=== PATIENT | female | born 1970 | race Caucasian/White ===

== ENCOUNTER → 2016-06-29 | Outpatient (CLI) | payer OTHER | LOC: WI 08:15 | PROVIDERS: ATTEND Family Medicine | DX: Z12.31 Encounter for screening mammogram for malignant neoplasm of breast (principal); R92.8 Other abnormal and inconclusive findings on diagnostic imaging of breast | CPT/HCPCS: 77067; G0202 ==

== ENCOUNTER 2017-01-21 10:49 | Emergency (ER) | payer OTHER ==
[2017-01-21] MEDS ORDERED: NORMAL SALINE 1000 ML 1,000 ML IV ONE (11:21)
[2017-01-21] MEDS ORDERED: PIPERACILLIN/TAZOBACTAM 4.5 GM VIAL IV ONE (11:21)
--- NOTE | 2017-01-21 11:24 | ER Document Report ---
ED Medical Screen (RME) - General Chief Complaint: Productive Cough Stated Complaint: ABNORMAL LABS Time Seen by Provider: 01/21/17 11:21 Notes: Patient states that she has recently been on Ceftin for sinusitis. She began to have worsening cough and trouble breathing. She went to her primary care physician yesterday and x-ray showed extensive pneumonia. She was then referred to [facility]. She states that [facility] they were never able to obtain an emergency department bed. She did not receive any fluids or antibiotics. Therefore they decided to come here for admission. She states that they were referred for admission at [facility]. Patient denies any significant chronic medical conditions. TRAVEL OUTSIDE OF THE [place] IN LAST 30 DAYS: No - Related Data Allergies/Adverse Reactions: No Known Allergies Allergy (Unverified 01/21/17 11:08) Past Medical History Renal/ Medical History: Denies: Hx Peritoneal Dialysis Physical Exam - Vital signs Vitals: Temp Pulse Resp BP Pulse Ox 99.6 F 99 20 147/88 H 98 01/21/17 11:04 01/21/17 11:04 01/21/17 11:04 01/21/17 11:04 01/21/17 11:04 Course - Vital Signs Vital signs: Temp Pulse Resp BP Pulse Ox 99.6 F 99 20 147/88 H 98 01/21/17 11:04 01/21/17 11:04 01/21/17 11:04 01/21/17 11:04 01/21/17 11:04
[2017-01-21 12:00] LABS: ABSOLUTE EOSINOPHILS # (AUTO) 0.1 10^3/uL (0.0-0.6); ABSOLUTE LYMPHOCYTES (AUTO) 1.6 10^3/uL (0.5-4.7); BASOPHILS % (AUTO) 0.3 % (0-2); EOSINOPHILS % (AUTO) 0.9 % (0-6); HEMATOCRIT 38.6 % (36.0-47.0); HEMOGLOBIN 13.5 g/dL (12.0-15.5); HGB HCT DIFFERENCE 1.9; LYMPHOCYTES % (AUTO) 9.3 % (13-45); MEAN CORPUSCULAR HEMOGLOBIN 31.6 pg (27.0-33.4); MEAN CORPUSCULAR VOLUME 91 fl (80-97); MONOCYTES % (AUTO) 6.2 % (3-13); RED BLOOD COUNT 4.27 10^6/uL (3.72-5.28); RED CELL DISTRIBUTION WIDTH 12.5 % (11.5-14.0); SEGMENTED NEUTROPHILS % (AUTO) 83.3 % (42-78); WHITE BLOOD COUNT 16.8 10^3/uL (4.0-10.5)
[2017-01-21 12:03] LABS: VENOUS BLOOD BASE EXCESS 4.9 mmol/L; VENOUS BLOOD HCO3 30.1 mmol/L (20-32); VENOUS BLOOD PCO2 46.2 mmHg (35-63); VENOUS BLOOD PH 7.43 (7.30-7.42)
[2017-01-21 12:26] LABS: ALANINE AMINOTRANSFERASE 118 U/L (9-52); ALBUMIN 4.5 g/dL (3.5-5.0); ALKALINE PHOSPHATASE 335 U/L (38-126); ANION GAP 15 (5-19); ASPARTATE AMINO TRANSFERASE 97 U/L (14-36); BILIRUBIN,DIRECT 0.5 mg/dL (0.0-0.4); BILIRUBIN,TOTAL 1.1 mg/dL (0.2-1.3); BLOOD UREA NITROGEN 11 mg/dL (7-20); CALCIUM 10.1 mg/dL (8.4-10.2); CARBON DIOXIDE 30 mmol/L (22-30); CHLORIDE 97 mmol/L (98-107); CREATININE RESULT 0.67 mg/dL (0.52-1.25); GLUCOSE 101 mg/dL (75-110); POTASSIUM 3.8 mmol/L (3.6-5.0)
[2017-01-21 12:52] LABS: APPEARANCE,URINE SLIGHTLY-CLOUDY; BILIRUBIN,URINE NEGATIVE (NEGATIVE); GLUCOSE, URINE NEGATIVE (NEGATIVE); KETONES,URINE 20 mg/dL (NEGATIVE); LEUKOCYTE ESTERASE,URINE NEGATIVE (NEGATIVE); NITRITE,URINE NEGATIVE (NEGATIVE); PROTEIN,URINE NEGATIVE (NEGATIVE); URINE SPECIFIC GRAVITY 1.008
--- NOTE | 2017-01-21 12:59 | ER Document Report ---
HPI - HPI Pain Level: 3 Notes: Patient is a 47-year-old female who presents to the ED with a dry semi- productive cough, nasal congestion/discharge, shortness of breath, fatigue, intermittent fevers, decreased appetite 2 weeks. Patient states that she was evaluated 5 days ago and was diagnosed with a sinus infection and sent home on antibiotics. Patient states that her symptoms began to worsen and she was evaluated by her PCM yesterday who diagnosed her with pneumonia and wanted her to get admitted. Her PCM directed her to [facility]. Patient was evaluated in the ED, but eloped because they did not have any rooms to admit her to and they did not give her any medications during her 3-1/2 hour stay. Patient states that her urinary habits have decreased she has been using some [id number] meds with minimal relief. She denies any drug allergies or significant past medical history. She does not take any other p.o. medications. Denies any headache, neck pain/stiffness, sore throat, chest pain , palpitations, syncope, wheeze, abdominal pain, nausea/vomiting/diarrhea, urinary retention, dysuria, hematuria, or rash. - ROS Notes: REVIEW OF SYSTEMS: CONSTITUTIONAL : see hpi EENT: see hpi CARDIOVASCULAR: Denies chest pain. Denies palpitations or racing or irregular heart beat. Denies ankle edema. RESPIRATORY: see hpi. GASTROINTESTINAL: Denies abdominal pain or distention. Denies nausea, vomiting , or diarrhea. Denies blood in vomitus, stools, or per rectum. Denies black, tarry stools. Denies constipation. GENITOURINARY: Denies difficulty urinating, painful urination, burning, frequency, blood in urine, or discharge. MUSCULOSKELETAL: Denies back or neck pain or stiffness. Denies joint pain or swelling. SKIN: Denies rash, lesions or sores. NEUROLOGICAL: Denies confusion or altered mental status. Denies passing out or loss of consciousness. Denies dizziness or lightheadedness. Denies headache. Denies weakness or paralysis or loss of use of either side. Denies problems with gait or speech. Denies sensory loss, numbness, or tingling. ALL OTHER SYSTEMS REVIEWED AND NEGATIVE. Dictation was performed using [employer] voice recognition software - DERM Skin Color: Normal Past Medical History - Social History Smoking Status: Never Smoker Family History: Reviewed & Not Pertinent Patient has suicidal ideation: No Patient has homicidal ideation: No Renal/ Medical History: Denies: Hx Peritoneal Dialysis Vertical Provider Document - CONSTITUTIONAL Agree With Documented VS: Yes Notes: PHYSICAL EXAMINATION: GENERAL: Well-appearing, well-nourished and in no acute distress. HEAD: Atraumatic, normocephalic. EYES: Pupils equal round and reactive to light, extraocular movements intact, sclera anicteric, conjunctiva are normal. ENT: Nares patent and with clear/yellow discharge. oropharynx clear without exudates. No tonsilar hypertrophy or erythema. Moist mucous membranes. No sinus tenderness. NECK: Normal range of motion, supple without lymphadenopathy. No rigidity/ meningismus. LUNGS: Rales to RLL. HEART: Regular rate and rhythm without murmurs, rubs, gallops. ABDOMEN: Soft, nontender, nondistended abdomen. No guarding, no rebound. No masses appreciated. Normal bowel sounds present. No CVA tenderness bilaterally. Musculoskeletal: FROM to passive/active. Strength 5+/5. Extremities: No cyanosis, clubbing, or edema b/l. Peripheral pulses 2+. Capillary refill less than 3 seconds. NEUROLOGICAL: Cranial nerves grossly intact. Normal speech. Normal sensory, motor exams PSYCH: Normal mood, normal affect. SKIN: Warm, Dry, normal turgor, no rashes or lesions noted. - INFECTION CONTROL TRAVEL OUTSIDE OF THE [place] IN LAST 30 DAYS: No - RESPIRATORY O2 Sat by Pulse Oximetry: 98 Course - Re-evaluation Re-evalutation: 01/21/17 14:[address] Cordova who is in agreement with d/c and plan: Patient is an afebrile, well-hydrated, 47-year-old female who presents the ED with a right lower lobe pneumonia. Vitals are stable. PE otherwise unremarkable. Her reported white blood cell count from her PCM yesterday was at 22 which has since decreased to 16.8 today. Her lactic acid was 1.9. LFTs were mildly elevated, but suspect irritation from the right lower lobe pneumonia. Zosyn was given IV today along with fluids. With stable vital signs , lack of comorbidities, and patient tolerating p.o., we will treat as an outpatient with Levaquin, tessalon, and inhaler. Decadron given IV today prior to discharge. Low suspicion for any ACS, dissection, PE, pneumothorax, pericarditis, sepsis, meningitis. Patient is aware that her condition can change from initial presentation and she needs to monitor symptoms closely and seek medical attention if any acute changes. Recheck with your PCM in 2-3 days. Return to the ED with any worsening/concerning symptoms otherwise as reviewed in discharge. Patient is in agreement. - Vital Signs Vital signs: Temp Pulse Resp BP Pulse Ox 99.6 F 99 20 147/88 H 98 01/21/17 11:04 01/21/17 11:04 01/21/17 11:04 01/21/17 11:04 01/21/17 11:04 - Laboratory Result Diagrams: 01/21/17 11:36 01/21/17 11:36 Laboratory results interpreted by me: 01/21/17 01/21/17 01/21/17 11:36 11:36 11:36 WBC 16.8 H Seg Neutrophils % 83.3 H Lymphocytes % 9.3 L Absolute Neutrophils 14.0 H VBG pH 7.43 H Chloride 97 L Direct Bilirubin 0.5 H AST 97 H ALT 118 H Alkaline Phosphatase 335 H Discharge - Discharge Clinical Impression: Right lower lobe pneumonia Qualifiers: Pneumonia type: due to unspecified organism Qualified Code(s): J18.1 - Lobar pneumonia, unspecified organism Condition: Stable Disposition: HOME, SELF-CARE Instructions: Pneumonia ([facility]), Levofloxacin, Steroid Medication Injection Additional Instructions: Maintain adequate fluid intake Take meds as directed tylenol/ibuprofen as needed over the counter cold medication as needed for symptoms Humidified air may help F/u: with your PCM in 2-3 days for a recheck Return to the ED with any fever, worsening pain, chest pain, palpitations, syncope, worsening KAY, neck pain/stiffness, shortness of breath, wheezing, drooling, trouble swallowing/breathing, abdominal pain, n/v/d, rash, or worsening/concerning symptoms otherwise. Prescriptions: Benzonatate [Tessalon Perle 100 mg Capsule] 100 mg PO Q8HP PRN #30 cap PRN Reason: Albuterol Sulfate [Proair HFA Inhalation Aerosol 8.5 gm MDI] 2 puff IH Q4H PRN # 1 mdi PRN Reason: Levofloxacin [Levaquin 750 mg Tablet] 750 mg PO DAILY #5 tablet Forms: Elevated Blood Pressure Referrals: MORENITA VILLANUEVA MD [Primary Care Provider] - 01/23/17
--- NOTE | 2017-01-21 13:44 | RADIOLOGY REPORT (SQ) ---
EXAM DESCRIPTION: CHEST PA/LAT COMPLETED DATE/TIME: 01/21/2017 1:05 pm REASON FOR STUDY: cough, dx'd pneumonia yesterday COMPARISON: None. EXAM PARAMETERS: NUMBER OF VIEWS: two views TECHNIQUE: Digital Frontal and Lateral radiographic views of the chest acquired. RADIATION DOSE: NA LIMITATIONS: none FINDINGS: LUNGS AND PLEURA: A limited infiltrate is seen posteriorly and inferiorly on the lateral v iew. This may be in the right lower lobe. MEDIASTINUM AND HILAR STRUCTURES: No masses or contour abnormalities. HEART AND VASCULAR STRUCTURES: Heart normal size. No evidence for failure. BONES: No acute findings. HARDWARE: None in the chest. OTHER: No other significant finding. IMPRESSION: Lower lobe infiltrate, possibly right lower lobe. TECHNICAL DOCUMENTATION: JOB ID: [id number] [facility]- All Rights Reserved
[2017-01-21 13:58] LABS: ADD ON TESTING BLD IN LAB ACKNOWLEDGE
[2017-01-21 14:05] LABS: LIPASE 60.2 U/L (23-300)
[2017-01-21] MEDS ORDERED: DEXAMETHASONE SOD PHOS INJ 10 MG/1 ML VIAL IV ONE (14:57)
[2017-01-21 15:10] VITALS: BP 138/70
== END 2017-01-21 15:10 | disposition home or self-care (01) ==
LOC: ER 10:49
DX: J18.1 Lobar pneumonia, unspecified organism (principal); R05 Cough; R09.81 Nasal congestion; R06.02 Shortness of breath; R63.0 Anorexia; R53.83 Other fatigue; R39.9 Unspecified symptoms and signs involving the genitourinary system
CPT/HCPCS: 99284; 96375; 96365; 36415; 87040; 87086; 83690; 85025; 81025; 80053; 81001; 82803; 83605; 71020; J7030; J1100; J2543

== ENCOUNTER → 2017-08-03 | Outpatient (CLI) | payer OTHER ==
--- NOTE | 2017-08-03 17:33 | WOMENS IMAGING REPORT ---
EXAM DESCRIPTION: 3D SCREENING MAMMO BILAT COMPLETED DATE/TIME: 08/03/2017 4:21 pm REASON FOR STUDY: ROUTINE SCREENING;Z12.31 Z12.31 ENCNTR SCREEN MAMMOGRAM FOR MALIGNANT NEOPLASM OF RACHID COMPARISON: Multiple since 2016 TECHNIQUE: Standard craniocaudal and mediolateral oblique views of each breast recorded using digita l acquisition and breast tomosynthesis. LIMITATIONS: None. FINDINGS: Findings present which are benign by mammographic criteria. No suspicious masses, calcifi cations or architectural distortion. Pertinent benign findings: Benign bilateral breast calcifications. Read with the assistance of CAD. .[place] - R2 Cenova Version 1.3 .[facility] - R2 Cenova Version 1.3 .[facility] - R2 Cenova Version 2.4 .[facility] - R2 Cenova Version 2.4 .[facility] - R2 Wedding [employer]inator Version 9.2 Benign mammographic findings may include one or more of the following: Smooth masses, popcorn/rim/co arse calcifications, asymmetries, post-procedure changes, and lesions with long-standing stability. IMPRESSION: BENIGN MAMMOGRAPHIC FINDINGS. BIRADS 2 BREAST DENSITY: c. The breasts are heterogeneously dense, which may obscure small masses. BIRAD: 2 BENIGN FINDING(S) RECOMMENDATION: RECOMMENDATION: ROUTINE SCREENING Please continue yearly bilateral screening tomosynthesis in August 2018 given heterogeneously dense ti ssue COMMENT: The patient has been notified of the results by letter per MQSA requirements. Additional no tification policies are in place for contacting patient with suspicious or incomplete findings. Quality ID #[id number]: The [employer] recommends an annual screening mammogram for women aged 40 years or over. This facility utilizes a reminder system to ensure that all patients receive reminder letters, and/or direct phone calls for appointments. This includes reminders for routine scr eening mammograms, diagnostic mammograms, or other Breast Imaging Interventions when appropriate. Th is patient will be placed in the appropriate reminder system. The [employer] [employer] (ACR) has developed recommendations for screening MRI of the breast s in certain patient populations, to be used in conjunction with mammography. Breast MRI surveillanc e may be appropriate for women with more than 20% lifetime risk of developing breast cancer as deter mined by genetic testing, significant family history of the disease, or history of mantle radiation f or Hodgkins Disease. ACR Practice Guidelines 2008. DBT Technology DBT is a type of tomographic mammography. With conventional mammography, overlapping breast tissue ma y make lesions difficult to detect, even with good compression. DBT uses an x-ray tube that rotates a round the breast, taking images at different angles. These images are then combined to create thin sl ices of the breast that the radiologist can view as a 3D reconstruction. The Hologic unit can perform full-field digital mammograms (2D imaging); or DBT (3D imaging); or both, in a combination mode that quickly performs both the mammogram and the tomosynthesis scan while the breast is still compressed. PQRS 6045F: Fluoroscopic imaging is not utilized for breast tomosynthesis. TECHNICAL DOCUMENTATION: FINDING NUMBER: (1) ASSESSMENT: (1) JOB ID: [id number] [employer]- All Rights Reserved Reading location - IP/workstation name: [email or web address]
== END ==
LOC: WI 13:07
PROVIDERS: ATTEND Midwife
DX: Z12.31 Encounter for screening mammogram for malignant neoplasm of breast (principal)
CPT/HCPCS: 77063; 77067